=== PATIENT | male | born 1990 | race Caucasian/White ===

== ENCOUNTER 2020-09-13 11:16 | Emergency (ER) | payer SELFPAY ==
[2020-09-13 11:20] VITALS: BP 145/87; PULSE 89; RESP 16; TEMP 37; O2SAT 96; BMI 37.5
--- NOTE | 2020-09-13 11:48 | W.ED.WOUNDLC ---
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 and he cut off the skin on the pad of his left thumb just a little while ago Onset (ago): minute(s) Location: other (Thumb) Place: work Patient tetanus UTD: Yes Context: accidental Associated symptoms: Reports no associated symptoms; Denies chills or fever(s) Treatments prior to arrival: bandage Review of Systems Const: Denies: fever(s) or chills Resp: Denies: dyspnea Skin/Breast: Reports: other (Avulsion injury left thumb from a knife) Neuro: Denies: numbness in extremities Psych: Denies: anxiety or depression Physical Exam Const: COMMON NORMALS: no acute distress Psych: COMMON NORMALS: mental status grossly normal Skin: OTHER: 2 cm x 2 cm avulsion injury of skin layers left thumb down to the fat of the thumb with venous bleeding no arterial bleeding noted has full range of motion of thumb Surgicel applied pressure dressing applied also Procedures Laceration Laceration 1: Site: hand Side (If applicable): left Size (cm): 2 Description: irregular and other (Avulsion injury) Skin layer closed with: other (Surgicel applied with pressure dressing no suturing needed) Course Vital Signs: Vital signs: Vital Signs Temperature 98.6 F 09/13/20 11:20 Pulse Rate 89 09/13/20 11:20 Respiratory Rate 16 09/13/20 11:20 Blood Pressure 145/87 09/13/20 11:20 Pulse Oximetry 96 09/13/20 11:20 MDM - Wound/Laceration MDM Narrative: Medical decision making narrative: Bleeding well controlled 20 minutes after pressure dressing applied with Surgicel underneath it. Coding Level of Care Code ED Neurosurgery Research Director for [facility] Fwd Exam Expanded Problem Focused
== END 2020-09-13 12:04 | disposition home or self-care (01) ==
PROVIDERS: Emergency Provider Nurse Practitioner Family; PCP Family Medicine
DX: S61.012A Laceration without foreign body of left thumb without damage to nail, initial encounter (principal); W26.0XXA Contact with knife, initial encounter
CPT/HCPCS: 12001; 99281